=== PATIENT | female | born 1985 | race Caucasian/White ===

== ENCOUNTER 2021-07-24 04:50 | Emergency (ER) | payer BC ==
[2021-07-24] MEDS ORDERED: Ondansetron 4 MG/2 ML SDV ONE (05:02)
[2021-07-24] MEDS ORDERED: Sodium Chloride 0.9% 1,000 ML ONE (05:02)
[2021-07-24] MEDS ORDERED: Ondansetron 4 MG/2 ML SDV IVPUSH ONE (05:04)
[2021-07-24] MEDS ORDERED: Sodium Chloride 0.9% 1,000 ML IV ONE (05:04)
[2021-07-24 05:43] LABS: ANION GAP 12.9 mmol/L (5-15); CHLORIDE,CL 102 mmol/L (98-107); SODIUM,NA 137 mmol/L (136-145)
== END 2021-07-24 06:25 | disposition home or self-care (01) ==
LOC: KA.ED 04:50
DX: O21.2 Late vomiting of pregnancy (principal); O99.013 Anemia complicating pregnancy, third trimester; D64.9 Anemia, unspecified; Z86.16 Personal history of COVID-19; Z88.8 Allergy status to other drugs, medicaments and biological substances; Z79.899 Other long term (current) drug therapy; Z3A.33 33 weeks gestation of pregnancy
CPT/HCPCS: 36415; 80053; 85025; 96374; 99284; 99284-25; J2405; J7030

== ENCOUNTER 2022-09-10 00:18 | Emergency (ER) | payer BC ==
[2022-09-10] MEDS: Mupirocin Oint 22 GM Tube TOP ONE (01:02)
== END 2022-09-10 01:23 | disposition home or self-care (01) ==
LOC: KA.ED 00:18
DX: J34.89 Other specified disorders of nose and nasal sinuses (principal); Z87.891 Personal history of nicotine dependence; Z88.8 Allergy status to other drugs, medicaments and biological substances; Z86.16 Personal history of COVID-19
CPT/HCPCS: 99283